=== PATIENT | female | born 1990 | race Caucasian/White ===

== ENCOUNTER 2019-05-09 09:40 | Emergency (ER) | payer OTHER ==
[~2019-05-09] VITALS: Ht 167.6 cm; Wt 81.6 kg
[~2019-05-09 09:40] MED LIST: IBUP-974 PO
[2019-05-09 09:41] VITALS: BP 91/62
--- NOTE | 2019-05-09 09:52 | NUR ---
PATIENT AMBULATED TO BED 3.
--- NOTE | 2019-05-09 09:58 | NUR ---
PT TO ED WITH C/O LOWER ABD PAIN WITH N/V X 1 NIGHT. ABD IS SOFT NON TENDER. NO DISTENTION NOTED. BOWEL SOUNDS PRESENT X 4. + PAIN UPON PALPATION TO BILATERAL LOWER QUADRANTS. PT IN BED FOR MD GALEANO.
[2019-05-09] MEDS ORDERED: NACL 0.9% 1,000 ML IV SCH (10:21)
[2019-05-09] MEDS ORDERED: FAMOTIDINE 20 MG/2 ML VIAL IVP ONE (10:25)
[2019-05-09] MEDS ORDERED: DIPHENOXYLATE /ATROPINE 2.5 MG TAB PO ONE (10:25)
[2019-05-09] MEDS ORDERED: ONDANSETRON 4 MG/2 ML VIAL IVP ONE (10:25)
[2019-05-09 10:47] LABS: BASOPHILS % (AUTO) 0.3 % (0.0-2.0); HEMATOCRIT 45.4 % (36-48); LYMPHOCYTES # (AUTO) 1.2 K/uL (2.5-16.5); LYMPHOCYTES % (AUTO) 10.6 % (20.5-51.1); MEAN CORPUSCULAR HEMOGLOBIN 29 pg (27-31); MEAN CORPUSCULAR HGB CONC 33 g/dL (33-37); MEAN CORPUSCULAR VOLUME 88.6 fL (80-94); MONOCYTES # (AUTO) 0.4 K/uL (0.8-1.0); MONOCYTES % (AUTO) 3.1 % (1.7-9.3); NEUTROPHILS # (AUTO) 9.7 K/uL (1.8-7.7); PLATELET COUNT (AUTO) 170 K/uL (140-450); RED BLOOD CELL COUNT(AUTO) 5.13 MIL/uL (4.20-5.40); RED CELL DISTRIBUTION WIDTH 13.5 % (11.6-13.7); WHITE BLOOD COUNT (AUTO) 11.3 K/uL (4.8-10.8)
[2019-05-09 10:55] LABS: ANION GAP 16.3 (8-16); CARBON DIOXIDE 26.9 mmol/L (21-32); CREATININE 0.8 mg/dL (0.6-1.3); POTASSIUM 4.2 mmol/L (3.5-5.1)
[2019-05-09 11:01] LABS: TOTAL BILIRUBIN 0.4 mg/dL (0.0-1.0)
[2019-05-09 11:22] LABS: ALBUMIN 4.1 g/dL (3.4-5.0)
--- NOTE | 2019-05-09 11:48 | NUR ---
Patient discharged with v/s stable. Written and verbal after care instructions given and explained. Patient alert, oriented and verbalized understanding of instructions. Ambulatory with steady gait. All questions addressed prior to discharge. ID band removed. Patient advised to follow up with PMD. Rx of lomotil/zofran given. Patient educated on indication of medication including possible reaction and side effects. Opportunity to ask questions provided and answered.
[2019-05-09 11:49] VITALS: BP 127/87
== END 2019-05-09 11:48 | disposition home or self-care (01) ==
LOC: MED 09:40
DX: R11.10 Vomiting, unspecified (principal); R19.7 Diarrhea, unspecified; R42 Dizziness and giddiness; R10.84 Generalized abdominal pain; Z79.899 Other long term (current) drug therapy
CPT/HCPCS: 36415; 80053; 81002; 81025; 83690; 85025; 96361; 96374; 96375; 99283; J2405; J3490; J7030